=== PATIENT | female | born 1975 | race Caucasian/White ===

== ENCOUNTER → 2017-03-02 | Outpatient (CLI) | payer OTHER ==
[~2017-03-02] MED LIST: LRT10T PO; METF-380 PO; MMT17NA NS; OMEP-10 PO
--- NOTE | 2017-03-02 12:04 | Diagnostic Imaging Report ---
EXAMINATION: CERVICAL SPINE 3 VIEWS OR LESS INDICATION: LEFT SIDED NECK PAIN SINCE YESTERDAY COMPARISON: None. FINDINGS: Moderate left apex cervical curvature. Kcdojbxe-qq-jyjmkpxe degenerative endplate changes are most marked at C4-C6. Vertebral body heights preserved. No fractures. Normal prevertebral soft tissues. IMPRESSION: 1. Ntnvemhu-nh-oxxeayte degenerative endplate changes at C4-C6. 2. Moderate left apex cervical curvature may be positional or due to muscle spasm. Dictated by: Dictated on workstation # [id number]
== END ==
LOC: RAD 11:38
PROVIDERS: ATTEND Nurse Practitioner Family
DX: M47.812 Spondylosis without myelopathy or radiculopathy, cervical region (principal); M43.8X2 Other specified deforming dorsopathies, cervical region
CPT/HCPCS: 72040

== ENCOUNTER → 2018-09-10 | Outpatient (CLI) | payer BC, OTHER ==
--- NOTE | 2018-09-10 12:58 | Diagnostic Imaging Report ---
PROCEDURE: US Non-ob pelvis comp/trans. TECHNIQUE: Multiple realtime grayscale images were obtained of the pelvis in various projections endovaginally. Transabdominal imaging was also performed. INDICATION: Pelvic pain COMPARISON: There are no prior studies available for comparison. FINDINGS: The uterus is not enlarged measuring 8.2 x 4.6 x 4.7 cm. The endometrial lining is not thickened measuring 4 mm. Along the posterior aspect of the uterine body/fundus there is a 1.7 x 1.8 x 1.5 cm hypoechoic area. This does suggest a fibroid. Both ovaries were identified and were generally unremarkable. There is no mass or free fluid collection evident. IMPRESSION: 1. The uterus is not enlarged but there does appear to be a 1.7 x 1.8 x 1.5 cm fibroid along the posterior aspect of the uterine body. 2. There is no acute pelvic abnormality noted. Dictated by: Dictated on workstation # [id number]
--- NOTE | 2018-09-11 13:51 | Diagnostic Imaging Report ---
Digital mammogram. Bilateral screening with 3-D tomosynthesis and CAD This study was compared with prior exams of 09/07/2017 and 01/19/2016. The current study was also evaluated with a Computer Aided Detection (CAD) system. FINDINGS: There are scattered fibroglandular densities in both breasts which could obscure a lesion. Overall, there does not appear to have been any significant change when compared to the prior exam. No primary or secondary sign of malignancy is noted. IMPRESSION: There is no radiographic evidence for malignancy. ACR BI-RADS Category 1: Negative. Result letter will be mailed to the patient. Note: At least 10% of breast cancer is not imaged by mammography. Dictated by: Dictated on workstation # [id number]
== END ==
LOC: RAD 10:39
PROVIDERS: ATTEND Obstetrics & Gynecology
DX: Z12.31 Encounter for screening mammogram for malignant neoplasm of breast (principal); D25.9 Leiomyoma of uterus, unspecified
CPT/HCPCS: 76830; 76856; 77067

== ENCOUNTER 2019-02-20 | Outpatient (RCR) | payer BC | END 2019-05-18 | disposition home or self-care (01) | LOC: CARD | PROVIDERS: ATTEND Family Medicine | DX: R00.0 Tachycardia, unspecified (principal) ==

== ENCOUNTER → 2019-04-29 | Outpatient (CLI) | payer BC, OTHER | LOC: CARD 11:18 | PROVIDERS: ATTEND Internal Medicine Cardiovascular Disease | DX: I47.1 Supraventricular tachycardia (principal); I11.9 Hypertensive heart disease without heart failure; E78.2 Mixed hyperlipidemia | CPT/HCPCS: 93306 ==

== ENCOUNTER → 2019-05-07 | Outpatient (CLI) | payer BC, OTHER ==
[2019-05-07 14:51] VITALS: BP 135/69
--- NOTE | 2019-05-07 14:51 | Cardiology Stress Test Report ---
Stress Test Report Date of Procedure/Referring: Date of Procedure: May 07, 2019 PCP Katarina Lozano Admitting Physician Iraida Saab MD Indications: Palpitation Baseline Heart Rate: 69 Baseline Blood Pressure: Blood Pressure Systolic: 135 Blood Pressure Diastolic: 69 Baseline EKG: Baseline EKG: normal sinus rhythm Summary/Conclusion: Summary: In summary, the patient started exercising with a baseline heart rate, blood pressure and EKG mentioned above Patient was able to exercise for a total of 4:30 minutes on Franklin protocol, 6.4 METs Maximum heart rate 166 Maximum blood pressure 201/89 Stress EKG Minimal nondiagnostic changes Recovery EKG Return to baseline Conclusion: 1. Good exercise tolerance for a total of 4:30 minutes on Franklin protocol, 6.4 METs, achieving 95 percent of maximum expected heart rate 2. Minimal nondiagnostic EKG changes with exercise returned to baseline during recovery 3. Occasional PVCs noted early in recovery, resolved late in recovery RADHA LIMON MD May 07, 2019 14:51
== END ==
LOC: CARD 13:20
PROVIDERS: ATTEND Physician Assistant
DX: I47.1 Supraventricular tachycardia (principal); I10 Essential (primary) hypertension; E78.2 Mixed hyperlipidemia
CPT/HCPCS: 93017

== ENCOUNTER 2019-09-03 15:01 | Outpatient (CLI) | payer OTHER | END 2019-09-03 15:24 | disposition home or self-care (01) | LOC: SLEEP 15:01 | PROVIDERS: ATTEND Physician Assistant | DX: I10 Essential (primary) hypertension (principal); E78.2 Mixed hyperlipidemia; E66.01 Morbid (severe) obesity due to excess calories; R00.2 Palpitations ==

== ENCOUNTER → 2019-11-07 | Outpatient (CLI) | payer OTHER ==
--- NOTE | 2019-11-07 17:12 | Diagnostic Imaging Report ---
INDICATION: Routine screening. Comparison is made with prior mammograms 09/10/2018, 09/07/2017. 2-D and 3-D bilateral screening mammography was performed with CAD. Scattered fibroglandular densities are identified bilaterally. The parenchymal pattern is stable. No mass or malignant appearing microcalcifications are seen. Axillae are unremarkable. IMPRESSION: BI-RADS Category 1. No mammographic features suspicious for malignancy are identified. ACR BI-RADS Category 1: Negative. Result letter will be mailed to the patient. Note: At least 10% of breast cancer is not imaged by mammography. Dictated by: Dictated on workstation # [id number]
== END ==
LOC: RAD 08:28
PROVIDERS: ATTEND Family Medicine
DX: Z12.31 Encounter for screening mammogram for malignant neoplasm of breast (principal)
CPT/HCPCS: 77063; 77067

== ENCOUNTER → 2020-11-12 | Outpatient (CLI) | payer OTHER ==
--- NOTE | 2020-11-12 13:43 | Diagnostic Imaging Report ---
Digital mammogram bilateral screening This study was compared to the prior exams of 11/07/2019, 09/10/2018 and 09/07/2017. At this time, there are no current complaints. The current study was also evaluated with a Computer Aided Detection (CAD) system. FINDINGS: The fibroglandular tissue in both breasts is heterogeneously dense. This does limit the sensitivity of this exam. Overall, there does not appear to have been any significant change when compared to the prior study. No primary or secondary sign of malignancy is noted. IMPRESSION: There is no radiographic evidence for malignancy. ACR category 1 ACR BI-RADS Category 1: Negative. Result letter will be mailed to the patient. Note: At least 10% of breast cancer is not imaged by mammography. Dictated by: Dictated on workstation # [id number]
== END ==
LOC: RAD 10:30
PROVIDERS: ATTEND Nurse Practitioner Family
DX: Z12.31 Encounter for screening mammogram for malignant neoplasm of breast (principal)
CPT/HCPCS: 77063; 77067

== ENCOUNTER 2021-06-02 05:32 | Outpatient (CLI) | payer OTHER ==
[~2021-06-02] VITALS: Ht 157.5 cm; Wt 101.0 kg
[2021-06-02] MEDS ORDERED: NEBI5TAB11 PO (10:18)
== END 2021-06-02 10:19 | disposition home or self-care (01) ==
LOC: PREOP 05:32
PROVIDERS: ATTEND Surgery
DX: Z01.818 Encounter for other preprocedural examination (principal)

== ENCOUNTER 2021-06-10 13:51 | Day surgery (SDC) | payer OTHER ==
[~2021-06-10] VITALS: Ht 157.5 cm; Wt 101.0 kg
[~2021-06-10 13:51] MED LIST changes: +LACTATED RINGERS 1,000 ML IV STA; +NEBI5TAB11 PO
[2021-06-10] MEDS ORDERED: HURRICAINE EXT TUBE (BENZOCAINE) XX PRN (14:00)
[2021-06-10 14:20] VITALS: BP 97/65
--- NOTE | 2021-06-10 14:44 | Progress Note-Pre Operative ---
Pre-Operative Progress Note H&P Reviewed The H&P was reviewed, patient examined and no changes noted. Date Seen by Provider: Jun 10, 2021 Time Seen by Provider: 14:43 Date H&P Reviewed: Jun 10, 2021 Time H&P Reviewed: 14:43 Pre-Operative Diagnosis: gerd family hx colon cancer LUCIE JIMENEZ DO Jun 10, 2021 14:43
[2021-06-10] MEDS ORDERED: MIDAZOLAM 2 MG/2 ML (VERSED) VIAL ONE (16:22)
[2021-06-10] MEDS ORDERED: PROPOFOL INJECTION 50 ML IV ONE (16:22)
[2021-06-10] MEDS ORDERED: SIMETHICONE 40 MG/0.6 ML (MYLICON DROPS) 30 ML BTL ONE (16:51)
[2021-06-10] MEDS ORDERED: proPOfol 200 MG/20 ML (DIPRIVAN) VIAL IV ONE (16:58)
--- NOTE | 2021-06-10 17:07 | Anesthesia-General Post-Op ---
MAC Patient Condition Mental Status/LOC: Same as Preop Cardiovascular: Satisfactory Nausea/Vomiting: Absent Respiratory: Satisfactory Pain: Controlled Complications: Absent Post Op Complications Complications None Follow Up Care/Instructions Patient Instructions None needed. Anesthesiology Discharge Order Discharge Order Patient is doing well, no complaints, stable vital signs, no apparent adverse anesthesia problems. No complications reported per nursing. ANA ROCHA CRNA Jun 10, 2021 17:07
--- NOTE | 2021-06-10 17:10 | Discharge Inst-Simple/Standard ---
Discharge Inst-Standard Patient Instructions/Follow Up Plan of Care/Instructions/FU: 2 weeks Shaka Activity as Tolerated: Yes Discharge Diet: Regular Diet LUCIE JIMENEZ DO Jun 10, 2021 17:10
[2021-06-10 17:12] VITALS: BP 103/58
[2021-06-10] MEDS ORDERED: SIMETHICONE 40 MG/0.6 ML (MYLICON DROPS) 30 ML BTL PO PRN (17:15)
[2021-06-10 17:35] VITALS: BP 106/63
--- NOTE | 2021-06-11 01:32 | OPERATIVE REPORT ---
DATE OF SERVICE: 06/10/2021 PREOPERATIVE DIAGNOSES: Family history of colon cancer and gastroesophageal reflux disease. POSTOPERATIVE DIAGNOSES: Hiatal hernia, slight gastritis, cecal polyp. PROCEDURE: EGD with biopsies, colonoscopy with hot biopsy polypectomy x1. SURGEON: Lucie Matt DO ANESTHESIA: Per BULL DRIVER. ESTIMATED BLOOD LOSS: None. COMPLICATIONS: None. INDICATIONS: The patient is a 46-year-old female needing screening colonoscopy for family history. She is also having some GERD symptoms. She understands risks and benefits and wishes to proceed. Consent was signed in the chart. DESCRIPTION OF PROCEDURE: The patient was taken to the endoscopy suite, placed in left lateral recumbent position. Timeout was performed. Scope was inserted in mouth, down the esophagus, stomach and into the duodenum without difficulty. No polyps, masses or ulcerations. Scope was then slowly retracted back into stomach where it was further insufflated. Slight gastritis appearance. Biopsy of the antrum was obtained. Scope was retroflexed noting no other pathology except for a small hiatal hernia. Scope was returned to its normal position, slowly withdrawn to distal esophagus. No polyps, masses or ulcerations. Biopsy of the GE junction was obtained. Scope was slowly retracted back until completely removed, noting no other pathology. Digital rectal exam was performed. No palpable polyps, masses or ulcerations. Scope was inserted in the rectum, advanced all the way to cecum with minimal difficulty. Prep was adequate with irrigation and suction. Small polyp was located in the cecum, which hot biopsy polypectomy was performed. Scope was then slowly retracted back. No polyps, masses or ulcerations within the ascending, transverse, descending and sigmoid colon. Once in the rectum, scope was retroflexed noting no other pathology. The scope was then returned to its normal position, slowly withdrawn until completely removed. The patient tolerated the procedure well without any complications. She was taken to recovery room in stable condition. RECOMMENDATIONS: The patient will continue on current medications. We will reevaluate medications in two weeks once pathology results are back. The patient will need repeat colonoscopy in five years due to family history of colon cancer and history of polyps. Any problems before that, she should be reevaluated at that time. Job ID: [id number] DocumentID: [id number] Dictated Date: 06/10/2021 18:22:00 [employer] Date: 06/11/2021 01:31:26 Dictated By: LUCIE MATT DO
== END 2021-06-10 17:44 | disposition home or self-care (01) ==
LOC: ENDO 13:51
PROVIDERS: ATTEND Surgery
DX: Z12.11 Encounter for screening for malignant neoplasm of colon (principal); D12.0 Benign neoplasm of cecum; K29.70 Gastritis, unspecified, without bleeding; K44.9 Diaphragmatic hernia without obstruction or gangrene; K21.9 Gastro-esophageal reflux disease without esophagitis; G47.33 Obstructive sleep apnea (adult) (pediatric); Z80.0 Family history of malignant neoplasm of digestive organs

== ENCOUNTER → 2021-09-23 | Outpatient (CLI) | payer OTHER ==
[~2021-09-23] MED LIST changes: +CATHETER FLUSH 10 ML SYR IV PRN; +HOLD METFORMIN - RECEIVED CONTRAST 20 ML VIAL IV SCH; +IOHEXOL 350 MG/ML 100 ML (OMNIPAQUE 350) VIAL IV ONE; -LACTATED RINGERS 1,000 ML IV STA; +NS 100 ML (IVPB) BAG IV ONE
--- NOTE | 2021-09-23 10:06 | Diagnostic Imaging Report ---
PROCEDURE: CT abdomen and pelvis with contrast. TECHNIQUE: Multiple contiguous axial images were obtained through the abdomen and pelvis after administration of intravenous contrast. Auto Exposure Controls were utilized during the CT exam to meet ALARA standards for radiation dose reduction. All CT scans use one or more of the following dose optimizing techniques: automated exposure control, MA and/or KvP adjustment based on patient size and exam type or iterative reconstruction. INDICATION: 38-year-old female, right posterior back pain, right upper quadrant and lower quadrant pain with nausea and vomiting. CORRELATION STUDY: 02/04/2012 FINDINGS: LOWER THORAX: Clear. LIVER: Unremarkable. GALLBLADDER: Cholecystectomy. No significant bile duct dilatation. SPLEEN: Unremarkable. PANCREAS: Unremarkable. ADRENAL GLANDS: Unremarkable. KIDNEYS: Normal configuration. No calcification or obstruction. The previously noted left renal stone not appreciated on follow-up. ABDOMINAL AORTA: Unremarkable, nonaneurysmal. GASTROINTESTINAL TRACT: No obstruction or inflammation. Normal appendix. URINARY BLADDER: Unremarkable. REPRODUCTIVE: Post hysterectomy. OSSEOUS STRUCTURES: No acute abnormality. OTHER: None. IMPRESSION: 1. Negative for acute abnormality of the abdomen or pelvis. Dictated by: Dictated on workstation # [id number]
== END ==
LOC: RAD 09:30
PROVIDERS: ATTEND Nurse Practitioner
DX: R10.84 Generalized abdominal pain (principal); M54.9 Dorsalgia, unspecified; R10.11 Right upper quadrant pain; R10.32 Left lower quadrant pain; R11.2 Nausea with vomiting, unspecified
CPT/HCPCS: 74177

== ENCOUNTER → 2021-11-18 | Outpatient (CLI) | payer OTHER ==
[~2021-11-18] MED LIST changes: -CATHETER FLUSH 10 ML SYR IV PRN; -HOLD METFORMIN - RECEIVED CONTRAST 20 ML VIAL IV SCH; -IOHEXOL 350 MG/ML 100 ML (OMNIPAQUE 350) VIAL IV ONE; -NS 100 ML (IVPB) BAG IV ONE
--- NOTE | 2021-11-18 15:57 | Diagnostic Imaging Report ---
Indication: Routine screening. Comparison is made with prior mammograms 11/12/2020 and 11/07/2019. 2-D and 3-D bilateral screening mammography was performed with CAD. Scattered fibroglandular densities are identified bilaterally. The parenchymal pattern is stable. No mass or malignant-appearing microcalcifications are seen. Axillae are unremarkable. IMPRESSION: BI-RADS Category 1 No mammographic features suspicious for malignancy are identified. ACR BI-RADS Category 1: Negative. Result letter will be mailed to the patient. Note: At least 10% of breast cancer is not imaged by mammography. Dictated by: Dictated on workstation # [id number]
== END ==
LOC: RAD 09:01
PROVIDERS: ATTEND Nurse Practitioner Family
DX: Z12.31 Encounter for screening mammogram for malignant neoplasm of breast (principal)
CPT/HCPCS: 77063; 77067

== ENCOUNTER → 2022-08-07 | Outpatient (CLI) | payer OTHER ==
[2022-08-07 10:53] VITALS: BP 108/54
[2022-08-07 11:00] VITALS: BP 108/54
--- NOTE | 2022-08-09 08:06 | Cardiology Stress Test Report ---
Stress Test Report Date of Procedure/Referring: Date of Procedure: Aug 07, 2022 PCP Michell Christianson Aprn Admitting Physician Admitting Physician: Attending Physician: Katarina Lozano Indications: cp Baseline Heart Rate: 82 Baseline Blood Pressure: Blood Pressure Systolic: 108 Blood Pressure Diastolic: 54 Baseline EKG: Baseline EKG: NSR Summary/Conclusion: Summary: In summary, the patient started exercising with a baseline heart rate, blood pressure and EKG mentioned above Patient was able to exercise for a total of 6 minutes on Franklin protocol, METs 7.3 Maximum heart rate 150 Maximum blood pressure 166/80 Stress EKG, Minimal nondiagnostic changes Recovery EKG , Return to baseline Conclusion: 1. Good exercise tolerance for a total of 6 minutes on Franklin protocol, 7.3 METs, achieving 87 percent of maximum expected heart rate 2. Minimal nondiagnostic EKG changes with exercise returned to baseline during recovery 3. No arrhythmia was noted Copy Copies To 1: [facility]/RADHA BALDERAS MD Aug 09, 2022 08:06
== END ==
LOC: CARD 10:31
PROVIDERS: ATTEND Physician Assistant
DX: R07.9 Chest pain, unspecified (principal)
CPT/HCPCS: 93017

== ENCOUNTER → 2022-12-08 | Outpatient (CLI) | payer OTHER ==
--- NOTE | 2022-12-08 12:38 | Diagnostic Imaging Report ---
INDICATION: Routine screening. Comparison is made with prior mammogram from 11/18/2021 and 11/12/2020. 2-D and 3-D bilateral screening mammography was performed with CAD. Scattered fibroglandular densities are identified bilaterally. The parenchymal pattern is stable. No mass or malignant-appearing microcalcifications are seen. Axillae are unremarkable. IMPRESSION: No mammographic features suspicious for malignancy are identified. ACR BI-RADS Category 1: Negative. Result letter will be mailed to the patient. Note: At least 10% of breast cancer is not imaged by mammography. BI-RADS Category 1 Dictated by: Dictated on workstation # [id number]
== END ==
LOC: RAD 09:45
DX: Z12.31 Encounter for screening mammogram for malignant neoplasm of breast (principal)
CPT/HCPCS: 77063; 77067